=== PATIENT | female | born 1955 | race Caucasian/White ===

== ENCOUNTER 2020-02-18 16:59 | Inpatient (IN) | payer OTHER, MEDICAID ==
[~2020-02-18] VITALS: Ht 154.9 cm; Wt 45.8 kg
[2020-02-18 17:40] LABS: Basophils # (auto) 0.1 10 ^3/uL (0-0.2); Basophils % (auto) 1.1 % (0.0-2.0); Eosinophils # (auto) 0.2 10 ^3/uL (0-0.8); Eosinophils % (auto) 4.9 % (0.0-7.0); Hematocrit 39.1 % (36.0-46.0); Hemoglobin 12.9 g/dL (12.2-16.2); Lymphocytes # (auto) 0.9 10 ^3/uL (0.4-5.4); Lymphocytes % (auto) 20.1 % (10.0-50.0); Mean Corpuscular Hemoglobin 31.1 pg (28.0-32.0); Mean Corpuscular Hgb Conc. 32.9 g/dL (32.0-36.0); Mean Corpuscular Volume 94.5 fL (80.0-100.0); Monocytes # (auto) 0.4 10 ^3/uL (0-1.3); Monocytes % (auto) 9.2 % (0.0-12.0); Neutrophils % (auto) 64.7 % (37.0-80.0); Nucleated Red Blood Cells % 0.1 %; Platelet Count (auto) 210 10^3/uL (140-450); Red Blood Cells 4.14 10^6/uL (4.0-5.20); Red Cell Distribution Width 12.6 % (11.8-14.3); White Blood Cell 4.7 10^3/uL (4.4-10.8)
[2020-02-18 17:55] LABS: Albumin 3.8 g/dL (3.4-5.0); Amylase 105 U/L (25-115); Anion Gap 9 (5-15); Blood Urea Nitrogen 16 mg/dL (7-18); Carbon Dioxide 26 mmol/L (21-32); Chloride 105 mmol/L (98-107); Glucose 100 mg/dL (74-106); Lipase 328 U/L (73-393); Magnesium 2.6 mg/dL (1.6-2.6); Potassium 3.6 mmol/L (3.5-5.1); Sodium 140 mmol/L (136-145)
[2020-02-18 18:01] LABS: Alanine Aminotransferase 24 U/L (13-56); Alkaline Phosphatase 80 U/L (45-117); Aspartate Aminotransferase 20 U/L (15-37); Bilirubin, Total 0.3 mg/dL (0.2-1.0); GFR African American 77 mL/min; GFR Non-African American 64 mL/min; Total Protein 7.6 g/dL (6.4-8.2)
[2020-02-18] MEDS ORDERED: MORPHINE SULF INJ 2 MG/ML SYRINGE 1ML IV ONE (19:45)
[2020-02-18] MEDS ORDERED: ONDANSETRON HCL 4 MG/2 ML VIAL IV ONE (19:45)
[2020-02-18] MEDS ORDERED: SODIUM CHLORIDE 0.9% 1,000 ML IV ONE (20:45)
[2020-02-18] MEDS: SODIUM CHLORIDE 0.9% 1,000 ML IV SCH (20:47)
[2020-02-18] MEDS ORDERED: ACETAMINOPHEN 325 MG TAB PO PRN (21:00)
[2020-02-18] MEDS ORDERED: LORazepam 0.5 MG TAB PO PRN (21:00)
[2020-02-18] MEDS ORDERED: HYDROcodone-ACET 5/325MG TAB PO PRN (21:00)
[2020-02-18] MEDS ORDERED: MORPHINE SULFATE 4 MG/ML SYR/VIAL IV PRN (21:00)
[2020-02-18] MEDS ORDERED: DOCUSATE SOD 100 MG CAP PO PRN (21:00)
[2020-02-18 22:10] VITALS: BP 145/81
--- NOTE | 2020-02-18 22:20 | NUR ---
MS admit from ER DAYAN MCDONALD admitted to [facility]. Patient oriented to Todd Maharaj, primary RN, unit, room, bed, and unit policies regarding patient care and visiting hours. Patient weighed by bedscale and encouraged to call if they need something. All questions and concerns addressed, patient verbalized understanding. Patient denies having any pain at the moment. Will continue to monitor the patient's status.
[2020-02-19 00:16] VITALS: BP 145/81
[2020-02-19] MEDS: ONDANSETRON HCL 4 MG/2 ML VIAL IV PRN ×2 (02:19→09:36)
[2020-02-19] MEDS ORDERED: HYDR-4833 PO (04:45)
[2020-02-19] MEDS ORDERED: ARIP1TAB7 PO (04:45)
[2020-02-19 05:19] VITALS: BP 152/78
[2020-02-19 06:02] LABS: Basophils # (auto) 0 10 ^3/uL (0-0.2); Basophils % (auto) 0.7 % (0.0-2.0); Eosinophils # (auto) 0.3 10 ^3/uL (0-0.8); Eosinophils % (auto) 9.3 % (0.0-7.0); Hematocrit 35.3 % (36.0-46.0); Hemoglobin 11.8 g/dL (12.2-16.2); Lymphocytes # (auto) 0.9 10 ^3/uL (0.4-5.4); Lymphocytes % (auto) 24.2 % (10.0-50.0); Mean Corpuscular Hemoglobin 31.6 pg (28.0-32.0); Mean Corpuscular Hgb Conc. 33.3 g/dL (32.0-36.0); Monocytes # (auto) 0.4 10 ^3/uL (0-1.3); Monocytes % (auto) 9.5 % (0.0-12.0); Neutrophils # (auto) 2.1 10 ^3/uL (1.6-8.6); Neutrophils % (auto) 56.3 % (37.0-80.0); Platelet Count (auto) 144 10^3/uL (140-450); Red Blood Cells 3.72 10^6/uL (4.0-5.20); Red Cell Distribution Width 12.4 % (11.8-14.3); White Blood Cell 3.8 10^3/uL (4.4-10.8)
[2020-02-19 06:23] LABS: BUN/Creatinine Ratio 12.2; Calcium 8.3 mg/dL (8.5-10.1); Potassium 3.7 mmol/L (3.5-5.1)
[2020-02-19] MEDS: SODIUM CHLORIDE 0.9% 1,000 ML IV SCH ×2 (06:47→16:52)
--- NOTE | 2020-02-19 07:30 | NUR ---
RECEIVED REPORT FROM NIGHT NURSE. PATIENT RESTING IN BED, NO DISTRESS NOTED. WILL CONTINUE TO MONITOR.
[2020-02-19 08:00] VITALS: BP 144/83
[2020-02-19] MEDS: PANTOPRAZOLE 40 MG/10 ML VIAL INJ IV SCH (10:41)
[2020-02-19] MEDS: levoFLOXacin 500MG 100 ML IV SCH (10:41)
[2020-02-19 12:00] VITALS: BP 168/82
[2020-02-19] MEDS: MORPHINE SULF INJ 2 MG/ML SYRINGE 1ML IV PRN ×2 (12:14→17:10)
[2020-02-19] MEDS ORDERED: METOCLOPRAMIDE HCL 5MG/ml INJ 2ml VIAL IV PRN (13:30)
--- NOTE | 2020-02-19 15:00 | NUR ---
IV REMOVAL IV REMOVED FROM LEFT FOREARM, PRESSURE DRESSING APPLIED. SLIGHT REDNESS NOTED TO IV INSERTION SITE. PATIENT DENIES PAIN/ DISCOMFORT.
[2020-02-19 15:15] LABS: Urine WBC None Seen /hpf (0 - 5)
--- NOTE | 2020-02-19 15:15 | NUR ---
IV INSERTION IV INSERTED USING ASEPTIC TECHNIQUE. 22G TO THE RIGHT WRIST. PATENT AND FLUSHING.
[2020-02-19] MEDS: metroNIDAZOLE 500MG/100ML 100 ML IV SCH ×2 (15:33→22:00)
[2020-02-19 15:40] LABS: Urine Bacteria NONE SEEN /hpf (None Seen); Urine Blood Negative /uL (Negative); Urine Specific Gravity 1.009 (1.001-1.035)
[2020-02-19 17:00] VITALS: BP 153/85
--- NOTE | 2020-02-19 17:13 | NUR ---
PATIENT COMPLAINING OF ANXIETY AND CRYING. STATES THAT SHE NEEDS SOMETHING TO HELP WITH HER ANXIETY. SPOKE WITH DOCTOR BALA, ORDERS RECEIVED, WILL PLACE AND CARRY OUT.
[2020-02-19] MEDS ORDERED: ALPRAZolam 0.25 MG TAB PO ONE (17:15)
--- NOTE | 2020-02-19 17:28 | NUR ---
DOCTOR Chanel VALENZUELA AT BEDSIDE. ORDERS RECEIVED, WILL PLACE AND CARRY OUT.
--- NOTE | 2020-02-19 19:25 | NUR ---
Opening Shift Note Assumed care of patient, awake and alert. No S/S of distress/SOB or pain. The patient reports feeling anxious and requested Ativan. Will treat anxiety with PRN anxiety. Bed is locked in lowest position with call light within reach. Instructed on POC and to call for assist PRN, will continue to monitor for changes Q1hr and PRN.
[2020-02-19] MEDS: LORazepam 2MG/ML-1ML VIAL IV PRN (19:31)
--- NOTE | 2020-02-19 20:35 | NUR ---
REASSESSMENT The patient states that her anxiety has improved after receiving the Ativan. Will continue to monitor the patient's status.
[2020-02-19 22:10] VITALS: BP 155/84
[2020-02-20] MEDS: SODIUM CHLORIDE 0.9% 1,000 ML IV SCH ×2 (02:47→12:47)
[2020-02-20 05:04] VITALS: BP 152/91
[2020-02-20] MEDS: metroNIDAZOLE 500MG/100ML 100 ML IV SCH ×3 (06:00→22:13)
[2020-02-20 06:55] LABS: Basophils # (auto) 0 10 ^3/uL (0-0.2); Basophils % (auto) 0.9 % (0.0-2.0); Eosinophils # (auto) 0.2 10 ^3/uL (0-0.8); Hematocrit 36.7 % (36.0-46.0); Hemoglobin 12.4 g/dL (12.2-16.2); Lymphocytes # (auto) 0.8 10 ^3/uL (0.4-5.4); Lymphocytes % (auto) 27.1 % (10.0-50.0); Mean Corpuscular Hemoglobin 31.9 pg (28.0-32.0); Mean Corpuscular Hgb Conc. 33.7 g/dL (32.0-36.0); Mean Corpuscular Volume 94.7 fL (80.0-100.0); Monocytes # (auto) 0.3 10 ^3/uL (0-1.3); Monocytes % (auto) 9.4 % (0.0-12.0); Neutrophils # (auto) 1.7 10 ^3/uL (1.6-8.6); Neutrophils % (auto) 54.6 % (37.0-80.0); Nucleated Red Blood Cells % 0.2 %; Platelet Count (auto) 153 10^3/uL (140-450); Red Blood Cells 3.88 10^6/uL (4.0-5.20); Red Cell Distribution Width 12.5 % (11.8-14.3)
[2020-02-20 07:03] LABS: Potassium 3.8 mmol/L (3.5-5.1)
[2020-02-20 07:09] LABS: Albumin 2.7 g/dL (3.4-5.0); BUN/Creatinine Ratio 14.5; Bilirubin, Total 0.4 mg/dL (0.2-1.0); Calcium 8.4 mg/dL (8.5-10.1); Total Protein 6.2 g/dL (6.4-8.2)
--- NOTE | 2020-02-20 07:20 | NUR ---
Opening Note Patient laying comfortably in bed w/ HOB 15 degrees. Patient AO x 4. Patient has no s/s of SOB or distress. Discussed POC with patient, patient understood. Patient safety measures in place. Bed at lowest position and call light within reach.
[2020-02-20 08:00] VITALS: BP 152/65
[2020-02-20 09:11] LABS: INR 1.13 (0.9-1.15); Partial Thromboplastin Time 27.6 sec (23.64-32.05)
[2020-02-20] MEDS: levoFLOXacin 500MG 100 ML IV SCH (10:00)
[2020-02-20] MEDS: PANTOPRAZOLE 40 MG/10 ML VIAL INJ IV SCH (10:00)
--- NOTE | 2020-02-20 10:30 | NUR ---
PATIENT DOWN TO OR FOR PROCEDURE.
[2020-02-20] MEDS ORDERED: ceFAZolin 1GM/50ML 50 ML IV ONE (10:54)
--- NOTE | 2020-02-20 11:00 | NUR ---
Patient in Surgery Patient has been in surgery since 1029. Not able to assess at this time. Addendum: 02/20/20 at 1322 by DERIK ALLEN RN RN Amended: Links added.
[2020-02-20] MEDS ORDERED: LIDOCAINE 1% (LOCAL ANESTH.) PF 5ml SDV ONE (11:31)
[2020-02-20] MEDS ORDERED: SUCCINYLCHOLINE CHLORIDE 20 MG/ML 10ML VIAL IV ONE (11:31)
[2020-02-20] MEDS ORDERED: MIDAZOLAM HCL 1MG/1ML-2 ML VIAL ONE (11:33)
[2020-02-20] MEDS ORDERED: ROCURONIUM 10MG/ML 10ML VIAL IV ONE (11:34)
[2020-02-20] MEDS ORDERED: ETOMIDATE (2MG/ML) 20ML VIAL IV ONE (11:35)
[2020-02-20] MEDS ORDERED: METOCLOPRAMIDE HCL 5MG/ml INJ 2ml VIAL ONE (11:36)
[2020-02-20] MEDS ORDERED: BUPIVACAINE 0.25% INJ 50ML VIAL ONE (11:42)
[2020-02-20] MEDS ORDERED: LIDOCAINE 1% HCL (LOCAL ANESTH.) INJ 20ML MDV ONE (11:42)
[2020-02-20] MEDS ORDERED: fentaNYL CITRATE 100 MCG/2 ML VL ONE (11:58)
[2020-02-20] MEDS ORDERED: ONDANSETRON HCL 4 MG/2 ML VIAL IV PRN (12:00)
[2020-02-20] MEDS ORDERED: HYDROmorphone HCL 2 MG/ML VL IV PRN ×2 (12:00)
[2020-02-20] MEDS ORDERED: hydrALAZINE HCL 20 MG/ML VL IV PRN (12:00)
[2020-02-20] MEDS ORDERED: NALOXONE HCL 0.4 MG/ML VIAL IV PRN (12:00)
[2020-02-20] MEDS ORDERED: hydrALAZINE HCL 20 MG/ML VL ONE (12:07)
[2020-02-20] MEDS ORDERED: LIDOCAINE HCL 2% TOP JELLY 5ML TOP ONE (12:29)
[2020-02-20] MEDS ORDERED: NEOSTIGMINE 1 MG/ML INJ (10mg/10ML VIAL) ONE (13:54)
[2020-02-20] MEDS ORDERED: GLYCOPYRROLATE 0.2 MG/ML 1ML VIAL ONE (13:54)
--- NOTE | 2020-02-20 15:10 | NUR ---
PATIENT BACK FROM SURGERY. 3 INCISIONS WITH DERMABOND TO ABDOMEN. GIANNI DRAIN IN PLACE, DRAINING RED FLUID. ABDOMINAL BINDER IN PLACE. NG TUBE TO THE LEFT NARE AT 61 CM TO LIS, DRAINING BROWN/ GREEN FLUID. VITALS STABLE, PATIENT STATING FEAR OF PAIN MANAGEMENT. STATES SHE IS ADDICTED TO PAIN MEDICATION AT HOME AND SHE WORRIES THAT WE WILL NOT BE ABLE TO GIVE HER LARGE ENOUGH DOSE OF MEDICATION TO HELP HER PAIN. ALSO STATES THAT SHE HAS A LOW PAIN TOLERANCE. WILL CONTINUE TO MONITOR.
--- NOTE | 2020-02-20 15:33 | NUR ---
Nutrition Assessment Notes Please refer to link for full assessment notes. Est Energy needs: [id number] kcals (23-25 kcal/kgBW) Est Protein needs: 45-50 gms/day (1.0-1.1 gm/kgBW) Will continue to monitor and reassess prn. Addendum: 02/20/20 at [address] Amended: Links added.
[2020-02-20 16:55] VITALS: BP 158/73
--- NOTE | 2020-02-20 17:00 | NUR ---
IV INSERTION IV INSERTED TO RIGHT FOREARM, 22G PATENT AND FLUSHING. WILL CONTINUE TO MONITOR.
--- NOTE | 2020-02-20 17:05 | NUR ---
IV REMOVAL IV REMOVED FROM RIGHT WRIST, CATHETER TIP INTACT, PRESSURE DRESSING APPLIED.
[2020-02-20] MEDS: MORPHINE SULF INJ 2 MG/ML SYRINGE 1ML IV PRN (17:06)
[2020-02-20] MEDS: LORazepam 2MG/ML-1ML VIAL IV PRN (18:20)
--- NOTE | 2020-02-20 19:20 | NUR ---
opening note pt A&ox4. respirations even and nonlabored on room air. pt has ngtube in place at 61 centimeters. [address] drain in place. bed in low locked position, call light within reach.
--- NOTE | 2020-02-20 20:40 | NUR ---
pain pt c/o abdominal pain, a rating of 7/10. pt will be medicated appropriately.
[2020-02-20] MEDS: HYDROmorphone HCL 2 MG/ML VL IV PRN (20:46)
[2020-02-20 22:00] VITALS: BP 148/84
[2020-02-21] VITALS (7 sets, daily range): BP systolic 122–167; BP diastolic 74–96
[2020-02-21] MEDS ORDERED: hydrALAZINE HCL 20 MG/ML VL IV PRN
[2020-02-21] MEDS ORDERED: SODIUM CHLORIDE 0.9% 1,000 ML IV SCH (00:15)
--- NOTE | 2020-02-21 00:35 | NUR ---
pt c/o anxiety. pt will be medicated with PRN medication.
[2020-02-21] MEDS: LORazepam 2MG/ML-1ML VIAL IV PRN ×2 (00:40→17:50)
[2020-02-21] MEDS: HYDROmorphone HCL 2 MG/ML VL IV PRN ×4 (05:02→20:05)
[2020-02-21] MEDS: metroNIDAZOLE 500MG/100ML 100 ML IV SCH ×3 (05:52→21:27)
[2020-02-21 06:26] LABS: Basophils # (auto) 0 10 ^3/uL (0-0.2); Basophils % (auto) 0.5 % (0.0-2.0); Eosinophils # (auto) 0 10 ^3/uL (0-0.8); Eosinophils % (auto) 0.2 % (0.0-7.0); Hematocrit 38.8 % (36.0-46.0); Hemoglobin 12.9 g/dL (12.2-16.2); Lymphocytes # (auto) 0.2 10 ^3/uL (0.4-5.4); Lymphocytes % (auto) 2.4 % (10.0-50.0); Mean Corpuscular Hemoglobin 31.3 pg (28.0-32.0); Mean Corpuscular Hgb Conc. 33.2 g/dL (32.0-36.0); Mean Corpuscular Volume 94.2 fL (80.0-100.0); Monocytes # (auto) 0.5 10 ^3/uL (0-1.3); Monocytes % (auto) 5.6 % (0.0-12.0); Neutrophils # (auto) 8.7 10 ^3/uL (1.6-8.6); Neutrophils % (auto) 91.3 % (37.0-80.0); Nucleated Red Blood Cells % 0.1 %; Platelet Count (auto) 164 10^3/uL (140-450); Red Blood Cells 4.12 10^6/uL (4.0-5.20); Red Cell Distribution Width 12.6 % (11.8-14.3); White Blood Cell 9.5 10^3/uL (4.4-10.8)
[2020-02-21 06:50] LABS: Calcium 8.2 mg/dL (8.5-10.1)
[2020-02-21 06:56] LABS: Albumin 3.1 g/dL (3.4-5.0); BUN/Creatinine Ratio 18.8; Bilirubin, Total 0.5 mg/dL (0.2-1.0); Total Protein 6.7 g/dL (6.4-8.2)
--- NOTE | 2020-02-21 07:15 | NUR ---
closing note 90mls out of faye drain. scant amount suctioned from ng tube. ng tube placed at 61 centimeters. pt resting in semi fowlers position with HOB at 30 degrees. bed in low locked position, call light within reach.
--- NOTE | 2020-02-21 07:43 | NUR ---
Opening Note Assumed pt care from NOC NR. Pt is a/ox4 with no s/s of distress or SOB. Pt is currently sitting upright in bed with no complaints at this time. Ng tube is present on LIS; 10 mL of green drainage noted. GIANNI drain present with minimal serous-sanguinous drainage present. Abdominal binder is on; incisions to abdomen are open to air and asymptomatic. Discussed with pt POC. Safety measures maintained with call light within reach, bed in lowest position and side rails up. Will continue to monitor.
--- NOTE | 2020-02-21 08:04 | NUR ---
Opening Note Patient in bed resting with HOB at 30 degrees. No S/S of distress or SOB. Radial and pedal pulses present and bounding upon palpitation. Lungs clear upon auscultation. Patient safety precautions in place, bed at lowest position, call light within reach, and upper side rails up.
[2020-02-21] MEDS: PANTOPRAZOLE 40 MG/10 ML VIAL INJ IV SCH (09:23)
[2020-02-21] MEDS: levoFLOXacin 500MG 100 ML IV SCH (09:23)
--- NOTE | 2020-02-21 10:49 | NUR ---
Dr Roberts at Bedside MD to see pt. Discussed POC with pt. Currently waiting for Keerthi Knox and Danny Knox for further recommendation and orders for advancement of diet. Will continue to monitor.
[2020-02-21] MEDS: POTASSIUM CHL 20MEQ/100ML 100 ML IV SCH ×2 (10:59→13:44)
--- NOTE | 2020-02-21 11:10 | NUR ---
Pain Patient complains of abdominal pain 6/10. Patient given pain medication as prescribed.
[2020-02-21] MEDS: D5W/ SOD CHL 0.9%/KCL 20MEQ 1,000 ML IV SCH (12:25)
--- NOTE | 2020-02-21 15:54 | NUR ---
Dr Keerthi nKox at Bedside MD to see pt. Orders to d/c NG tube as well as allow ice chips. Orders read back and verified. Will continue to monitor.
--- NOTE | 2020-02-21 16:05 | NUR ---
NG Tube Removed NG tube removed without difficulty. Pt tolerated removal well. Pt provided ice chips at this time. Will continue to monitor.
--- NOTE | 2020-02-21 16:10 | NUR ---
Ambulation Pt was able to ambulate in cook and back with PT today. Will continue to monitor and encourage frequent ambulation.
--- NOTE | 2020-02-21 17:13 | NUR ---
Elevated BP Reported BP os 167/80 with a HR of 85 reported. Reassessed pt, currently asymptomatic and states she has generalized abdominal ache, 12/05. Reassessed pt's BP, currently 150/74 with a HR of 81. Will continue to monitor.
--- NOTE | 2020-02-21 17:42 | NUR ---
Toleration of Ice Chips Pt able to tolerate ice chips with no difficulty. Will continue to monitor.
--- NOTE | 2020-02-21 18:16 | NUR ---
GIANNI Drain 20 mL of serous-sanguinous drainage emptied from GIANNI drain.
--- NOTE | 2020-02-21 19:20 | NUR ---
opening note pt a&ox4. resp even and nonlabored on room air. faye drain in place. abd binder in place. IV fliuds at 75/hr. pt advised on current diet, ice chips only. bed in low locked position, call light within reach.
--- NOTE | 2020-02-21 20:01 | NUR ---
pt c/o pain at abdominal area, rating of 6/10. pt will be medicated appropriately with PRN medication.
--- NOTE | 2020-02-21 21:15 | NUR ---
pt up to bedside commode
--- NOTE | 2020-02-21 22:44 | NUR ---
pt up to BSC
[2020-02-22] MEDS: D5W/ SOD CHL 0.9%/KCL 20MEQ 1,000 ML IV SCH (03:26)
[2020-02-22] MEDS: HYDROmorphone HCL 2 MG/ML VL IV PRN ×3 (03:26→12:19)
[2020-02-22 05:00] VITALS: BP 135/75
[2020-02-22] MEDS: metroNIDAZOLE 500MG/100ML 100 ML IV SCH ×2 (06:07→13:27)
[2020-02-22 06:33] LABS: Hematocrit 33.5 % (36.0-46.0); Hemoglobin 11.5 g/dL (12.2-16.2)
[2020-02-22 06:53] LABS: Potassium 3.6 mmol/L (3.5-5.1)
--- NOTE | 2020-02-22 07:11 | NUR ---
closing note pt resting in right lateral position with eyes closed. no s/s of pain or discomfort. respirations are even and non labored on room air. abd binder in place. faye drain 50 ml at end of shift. bed in low locked position, call light within reach.
[2020-02-22 07:12] LABS: Albumin 2.7 g/dL (3.4-5.0); BUN/Creatinine Ratio 12.5; Bilirubin, Total 0.5 mg/dL (0.2-1.0); Calcium 8.3 mg/dL (8.5-10.1); Magnesium 2.2 mg/dL (1.6-2.6); Total Protein 6.1 g/dL (6.4-8.2)
--- NOTE | 2020-02-22 07:31 | NUR ---
Opening Note Assumed pt care from NOC RN. Pt is a/ox4 with no s/s of distress or SOB. Pt is currently sitting upright in bed with mild c/o pain in abdomen, 5/10 generalized abdominal ache. Discussed available pain medication. Discussed POC with pt; pt verbalized understanding. Incisions to abdomen are open to air and asymptomatic; GIANNI drain present and draining minimal serous-sanguinous drainage. Safety measures maintained with call light within reach, bed in lowest position and side rails up. Will continue to monitor.
[2020-02-22 08:00] VITALS: BP 142/72
[2020-02-22] MEDS: PANTOPRAZOLE 40 MG/10 ML VIAL INJ IV SCH (08:53)
[2020-02-22] MEDS: levoFLOXacin 500MG 100 ML IV SCH (08:54)
[2020-02-22] MEDS: LORazepam 2MG/ML-1ML VIAL IV PRN (10:09)
--- NOTE | 2020-02-22 10:27 | NUR ---
Dr Danny Knox Called Dr Danny Knox called requesting an update on pt. Discussed pt and she requested that we contact Dr Pam Knox to see if we could advance her diet to clear liquid since pt is tolerating ice chips. Will page . Addendum: 02/22/20 at 1044 by RICARDO DUMAS RN RN Attempted to page , busy signal received. Will attempt to page later. Will continue to monitor. Addendum: 02/22/20 at 1100 by RICARDO DUMAS RN RN Spoke with Dr Keerthi Knox. New orders given, read back and verified.
--- NOTE | 2020-02-22 10:34 | NUR ---
IV Insertion and Removal 22G to pt's L FA inserted using clean/sterile technique. 2 attempts made. Pt tolerated insertion well. 22G to pt's hand removed. Catheter was removed fully intact. Site is asymptomatic. Pressure was applied to site for 3 minutes with gauze and then wrapped in coban. Pt instructed to keep dressing on for 30 minutes; pt verbalized understanding.
[2020-02-22 12:00] VITALS: BP 136/81
--- NOTE | 2020-02-22 12:50 | NUR ---
Pain reassessment Patient reports no pain relief and states pain level 6 out of 10. Cold and heat packs were offered. Patient refused saying that pain medication only will help decrease her pain.
--- NOTE | 2020-02-22 13:03 | NUR ---
GIANNI drain 20 ml of serous-sanguinous fluid was drained from GIANNI.
--- NOTE | 2020-02-22 13:08 | NUR ---
Dr Chung at Bedside MD to see pt. MD discussed POC with pt. Encouraged frequent ambulation to promote bowel activity. Will assist in ambulating patient later today after lunch. Will continue to monitor.
--- NOTE | 2020-02-22 13:10 | NUR ---
Pt Reported that she Passed Gas Will continue to monitor.
[2020-02-22] MEDS ORDERED: D5W/ SOD CHL 0.9%/KCL 20MEQ 1,000 ML IV SCH (13:30)
[2020-02-22] MEDS ORDERED: LORazepam 2MG/ML-1ML VIAL IV PRN (13:30)
--- NOTE | 2020-02-22 13:30 | NUR ---
Ambulation Pt able to ambulate around central unit once. Will encourage frequent ambulation.
--- NOTE | 2020-02-22 13:57 | NUR ---
Pt Reports Desire to Leave AMA Pt states that she wishes to leave AMA. Pt states that she feels "well enough to go home". Discussed POC with pt and need to make sure pt is "safe" to d/c home; passing gas, have a BM, pt able to tolerate advancement of diet. Pt states "I will figure that all out at home". Pt further states :I am just getting more anxious here...if I still have abdominal pain I will just come back". Further provided pt with eduction on reason unsafe discharge. Pt still adamant that she is to leave today.
--- NOTE | 2020-02-22 14:12 | NUR ---
Pt Further Requests that She is to Leave AMA Pt verbalized that she wishes to leave. "I do not want to stay here anymore...I feel like I cannot breathe". Upon further conversation, pt states that she feels like she is not able to breathe while she is here and "will breathe better at home". Questioned what pt does when she feels like she cannot breathe at home, he states that she "sits up". Offered pt more pillows as well as sitting pt up in a higher position in bed, she stated "that will not help". Pt further states "I will just go home to if I can breathe there". I further asked what would happen if pt could not breathe at home and she stated "I will just come back". Further provided pt with eduction regarding benefits of staying in the hospital so that she would not have to come back. Pt states that she does not want to wait any more. Addendum: 02/22/20 at 1428 by RICARDO DUMAS RN RN Dr Chung made aware.
--- NOTE | 2020-02-22 14:30 | NUR ---
IV D/C'ed IV to pt's L Fa removed fully intact. Site is asymptomatic. Pressure was applied to site for 3 minutes with gauze and then wrapped in coban. Pt instructed to keep dressing on for 30 minutes; pt verbalized understanding.
--- NOTE | 2020-02-22 14:47 | NUR ---
Pt D/C'ed off Unit--AMA Pt d/c'ed off unit via wheelchair. IV was d/c'ed prior to d/c. Pt is a/ox4 with no s/s of distress. GIANNI drain is present upon d/c. Pt aware of risks or leaving AMA; pt agreeable to risks. Signed AMA paper is in paper chart. Pt took all belongings home with her.
== END 2020-02-22 14:47 | disposition left against medical advice (07) | DRG 418 ==
LOC: ER 16:59 → OVERFLOW 17:00 → CENTRAL 22:05
PROVIDERS: ADMIT Hospitalist; ATTEND Internal Medicine
PROC: 0DQ94ZZ Repair Duodenum, Percutaneous Endoscopic Approach (ICD-10-PCS; 2020-02-20)
PROC: 0FT44ZZ Resection of Gallbladder, Percutaneous Endoscopic Approach (ICD-10-PCS; principal; 2020-02-20 11:47)
DX: K80.12 Calculus of gallbladder with acute and chronic cholecystitis without obstruction (principal); K56.7 Ileus, unspecified; E44.0 Moderate protein-calorie malnutrition; K83.3 Fistula of bile duct; Z68.1 Body mass index [BMI] 19.9 or less, adult; N20.0 Calculus of kidney; F41.9 Anxiety disorder, unspecified; E87.6 Hypokalemia; Z53.29 Procedure and treatment not carried out because of patient's decision for other reasons; K21.9 Gastro-esophageal reflux disease without esophagitis; G89.29 Other chronic pain; F32.9 Major depressive disorder, single episode, unspecified; Z79.899 Other long term (current) drug therapy; K82.8 Other specified diseases of gallbladder
CPT/HCPCS: 36415; 71045; 74176; 76705; 80048; 80053; 81001; 82150; 83690; 83735; 84132; 84443; 84484; 85014; 85018; 85025; 85610; 85730; 86850; 86900; 86901; 93005; 96361; 96374; 96375; 97116; 97163; 97530; C9113; G0378; J0330; J0690; J1956; J2001; J2250; J2405; J3480; J3490